=== PATIENT | female | born 1975 | race Caucasian/White ===

== ENCOUNTER 2022-07-18 12:27 | Emergency (ER) | payer MEDICAID, OTHER ==
[~2022-07-18] VITALS: Ht 157.5 cm; Wt 99.0 kg
[2022-07-18] MEDS ORDERED: MEPERIDINE HCL (50 MG/ML) 1 ML VIAL IM ONE (15:30)
[2022-07-18] MEDS ORDERED: PROMETHAZINE HCL 25 MG/ML 1ML IM ONE (15:30)
[2022-07-18 15:33] VITALS: BP 116/68
[2022-07-18] MEDS ORDERED: PRED20TA2 PO (15:43)
[2022-07-18] MEDS ORDERED: TRAM-297 PO (15:43)
== END 2022-07-18 15:58 | disposition home or self-care (01) ==
LOC: ER 12:40
DX: G89.29 Other chronic pain (principal); M54.50 Low back pain, unspecified; M25.562 Pain in left knee
CPT/HCPCS: 96372; 99284; J2175; J2550

== ENCOUNTER 2025-10-11 10:06 | Inpatient (IN) | payer MEDICAID ==
[~2025-10-11] VITALS: Ht 160 cm; Wt 91.5 kg
[~2025-10-11 10:06] MED LIST: ALBUAER3 IN; ASPI1TAB20 PO; ATOR10TA PO; BECL40AE11 IN; CHOL20004 PO; CYCL-837 PO; DICL75TA3 PO; EPIN0.1I11 IJ; FENO200C22 PO; HYDR25TA5 GT; IBU600T PO; LORA5SYP23 PO; METF-370 PO; METH-1181 PO; OMEP20TA PO; SEMA2INJ3 SC; ZOFR4T PO
[2025-10-11] MEDS: CEFEPIME 1GM/50ML 50 ML IV ONE (11:36)
[2025-10-11] MEDS ORDERED: fentaNYL CITRATE 100 MCG/2 ML VL ONE (12:43)
[2025-10-11] MEDS ORDERED: MIDAZOLAM HCL 2MG/2ML 2ml VIAL (1mg/ml) ONE (12:43)
[2025-10-11] MEDS ORDERED: METOCLOPRAMIDE HCL 5MG/ml INJ 2ml VIAL ONE (12:54)
[2025-10-11] MEDS ORDERED: ONDANSETRON HCL 4 MG/2 ML VIAL ONE (12:54)
[2025-10-11] MEDS ORDERED: HYDROmorphone HCL 2 MG/ML VL/or syr ONE (13:13)
[2025-10-11] MEDS ORDERED: SODIUM CHLORIDE LOCK 10 ML ONE (13:19)
[2025-10-11] MEDS ORDERED: hydrALAZINE HCL 20 MG/ML VL ONE (13:19)
[2025-10-11] MEDS ORDERED: ROCURONIUM 10MG/ML 10ML VIAL IV ONE (13:25)
[2025-10-11] MEDS ORDERED: METOPROLOL TARTRATE 1MG/1ML-5ML VIAL IV ONE (13:26)
[2025-10-11] MEDS ORDERED: SUGAMMADEX 200mg/2ml Vial (100MG/ML) IV ONE (13:49)
[2025-10-11] MEDS ORDERED: hydrALAZINE HCL 20 MG/ML VL IV PRN (14:00)
[2025-10-11] MEDS ORDERED: METOCLOPRAMIDE HCL 5MG/ml INJ 2ml VIAL IV PRN (14:00)
[2025-10-11] MEDS ORDERED: ONDANSETRON HCL 4 MG/2 ML VIAL IV PRN (14:00)
[2025-10-11] MEDS ORDERED: D5W/LACTATED RINGERS 1,000 ML IV SCH (14:30)
[2025-10-11] MEDS ORDERED: ONDANSETRON ODT 4 MG TAB PO PRN (14:45)
[2025-10-11] MEDS: SODIUM CHLORIDE 0.9% 1,000 ML IV SCH (14:45)
--- NOTE | 2025-10-11 14:45 | DVHOP2 ---
Operative Report - 2 Report Details Date: 10/11/25 Preop Diagnosis: Left knee degenerative arthritis Postop Diagnosis: Left knee degenerative arthritis Surgeon: Maricarmen Jain MD Contract Writer: Patrick BANERJEE Anesthesiologist: Yimi Anesthesia: General, Regional Drains: Umberto closed wound suction Implant: DonJoy size five femur porous uncemented CR, size five tibial plate cemented, size 10 conforming polyethylene Consent: The patient was informed of the risks and benefits of the procedure. These include but are not limited to complications of anesthesia, postoperative infection, incomplete relief of symptoms, recurrence of symptoms, damage to blood vessels, nerves and tendons, deep venous thrombosis, pulmonary embolism and possible need for repeat surgery in the future. Complications: None Estimated Blood Loss: 150 cc Fluids: See anesthesia record Findings: Varus deformity, osteophytes, denuded cartilage with eburnated bone Indications for Surgery: Left knee degenerative arthritis with severe pain and functional impairment despite nonoperative management Name of Procedure Performed Left total knee arthroplasty Procedure Details Procedure Details: The patient was brought to the operating room and placed on the table in the supine position after being given general anesthetic with adequate analgesia obtained. Surgical timeout was performed verifying patient, laterality and procedure Preop patient received IV cefepime IV Ancef and IV tranexamic acid. Tourniquet was applied to the lower extremity. Lower extremity was prepped and draped in sterile fashion. Extremity was elevated, exsanguinated Esmarch, and tourniquet inflated. Midline incision was made followed by medial arthrotomy. I exposed the anterior medial and lateral tibial plateau and the anterior distal femur. Bovie and aqua mantis were used for hemostasis. I excised the anterior meniscal tissue with Bovie. I excised a portion of the fat pad with Bovie. The patella was everted and the knee flexed. I drilled the distal femur and suctioned the hole to reduce the risk of fat emboli. I inserted intramedullary guide with 5 degree valgus setting. I pinned the distal femoral cutting block anteriorly. Intramedullary nilesh was removed. Distal femoral cut was made and the block removed. I brought my attention to the tibia setting up the external cutting jig for the tibia paying attention to slope, rotation and varus valgus alignment. I set the depth and pinned the block. I used the external alignment nilesh to aid in checking alignment. Bone cut was made and bone removed releasing soft tissue attachments with Bovie. Cutting block removed. I then checked the extension gap and deemed adequate and removed the femur and tibia pins. I flexed the knee and applied the femoral sizing guide to the femur. I checked the size and external rotation setting at 90 degrees to Whitesides line and checking the epicondylar axis. I drilled the holes then removed the sizing guide and pin. I then tapped on the 4 in 1 cutting block and checked with the sarita wing anteriorly to make sure that I would not notch then pinned the block. Cuts were made and the block and pins were removed. Bone was removed with curved osteotome. I used a rongeur to remove any remaining osteophytes at the femur and tibia. I then used a lamina reclamation worker to open up the back alternating between the medial and lateral side. Any remaining meniscal tissue was excised with scalpel. I used curved osteotome, curette and rongeur to remove any posterior osteophytes. I prophylactically coagulated with aqua mantis. I then tapped on the femoral trial. I then brought my attention back to the tibia sizing it. I used the external alignment nilesh to make sure that rotation and alignment were good. I made a Bovie yakov at the tibial tray yakov identifying rotation for later use. I tried various tibial polytrials. The patella tracked nicely without thumb pressure. I drilled the two femur holes. I removed the trials. I pinned the tray and used the reamer and keel punch. The implants were brought into the field while bone preparation was started. I used both normal saline irrigation and the CarboJet to prepare the bone. I used the bone from the cuts to graft the femoral tunnel. Once cement was ready I applied cement to the tibial implant and tibial bone tapped it on and removed excess cement in usual fashion. I tapped on the femoral im plant using porous implant without cement.. I inserted the trial polyethylene and brought the knee into 30 degrees flexion. I irrigated with biasurge irrigant. Once cement cured, I checked stability and range of motion as well as patella tracking. tourniquet was released and hemostasis maintained with aqua mantis. I inserted the polyethylene and again checked stability. I used a 2 grams of vancomycin half of which was placed deep and half superficial. I repaired the extensor mechanism with the knee in flexion with #1 Ethibond interrupted [id number]. Deep subcutaneous tissue was closed with 0 Vicryl. Superficial subcutaneous tissue was closed with 2-0 vicryl interrupted. Skin was closed with jose enrique. I then applied the [umberto closed wound suction]. Patient tolerated the procedure well and was brought to recovery room in stable condition. Condition Stable Disposition Still a Patient MARICARMEN JAIN MD Oct 11, 2025 14:45
[2025-10-11 14:46] VITALS: PULSE 96; RESP 16; O2SAT 96
[2025-10-11] MEDS: HYDROmorphone HCL 2 MG/ML VL/or syr IV PRN (15:03)
--- NOTE | 2025-10-11 15:45 | DVH ---
EXAM: XY L KNEE 3V XRAY INDICATION: postop TECHNIQUE: 3 views of the left knee COMPARISON: None FINDINGS/IMPRESSION: Left total knee arthroplasty. Expected postoperative changes.
[2025-10-11 16:20] VITALS: PULSE 98; RESP 15; O2SAT 97
[2025-10-11 16:55] VITALS: PULSE 92; RESP 20; O2SAT 98
[2025-10-11] MEDS: TRANEXAMIC ACID 20 ML ONE (16:57)
[2025-10-11] MEDS: ceFAZolin 2 GM/D5W50ml 50 ML IV ONE (16:58)
[2025-10-11] MEDS: VANCOMYCIN HCL 1000 MG VL ONE (16:58)
[2025-10-11 17:00] VITALS: BP 181/77; PULSE 92; RESP 20; TEMP 98.7; O2SAT 98
[2025-10-11] MEDS: ACETAMINOPHEN IV 1000 MG/100ML (10MG/ML) IV ONE (17:00)
[2025-10-11] MEDS: KETOROLAC TROMETH 30 MG/ML 1ML VIAL IV ONE (17:00)
[2025-10-11] MEDS ORDERED: ALBUTEROL SULF HFA 90MCG INH 200DOSE IN SCH (18:00)
[2025-10-11] MEDS: ACETAMINOPHEN 325 MG TAB PO SCH (18:08)
[2025-10-11] MEDS: ACETAMINOPHEN 325 MG TAB PO PRN (20:15)
[2025-10-11 21:00] VITALS: BP 194/88; PULSE 88; RESP 18; TEMP 98.2; O2SAT 95
[2025-10-11] MEDS: PREGABALIN 25 MG CAP PO SCH (22:29)
[2025-10-12] VITALS (7 sets, daily range): BP systolic 131–174; BP diastolic 60–90; PULSE 89–101; RESP 17–18; TEMP 97.8–98.3; O2SAT 94–99
[2025-10-12] MEDS: ceFAZolin 2 GM/D5W50ml 50 ML IV SCH (00:37)
[2025-10-12] MEDS: PANTOPRAZOLE 40 MG TAB PO SCH (05:19)
[2025-10-12 06:03] LABS: Hematocrit 36.6 % (36.0-46.0); Hemoglobin 12.6 g/dL (12.2-16.2); Mean Corpuscular Hemoglobin 28.2 pg (28.0-32.0); Mean Corpuscular Volume 82.0 fL (80.0-100.0); Nucleated Red Blood Cells % 0.0 %
[2025-10-12 06:40] LABS: Anion Gap 12 (5-15); Calcium 9.6 mg/dL (8.7-10.4); Carbon Dioxide 27 mmol/L (20-31); Chloride 99 mmol/L (98-107); Potassium 3.9 mmol/L (3.5-5.1); Sodium 138 mmol/L (136-145)
[2025-10-12 06:46] LABS: BUN/Creatinine Ratio 15.6 (10.0-20.0); Blood Urea Nitrogen 10 mg/dL (9-23)
[2025-10-12 06:48] LABS: Glucose 164 mg/dL (74-106)
[2025-10-12] MEDS: hydroCHLOROthiazide 25 MG TAB GT SCH (10:21)
[2025-10-12] MEDS ORDERED: PROPOFOL 10 MG/ML 20 ML IV ONE (13:45)
[2025-10-12] MEDS ORDERED: LIDOCAINE 1% (LOCAL ANESTH.) PF 5ml SDV ID ONE (13:46)
--- NOTE | 2025-10-12 14:46 | DVHDS2 ---
Discharge Summary Date of Admission Oct 11, 2025 at 14:26 Date of Discharge: Oct 12, 2025 Labs/Diagnostic Data: Laboratory Results Test 10/12/25 04:41 White Blood Count 9.6 10^3/uL (4.4-10.8) Red Blood Count 4.46 10^6/uL (4.0-5.20) Hemoglobin 12.6 g/dL (12.2-16.2) Hematocrit 36.6 % (36.0-46.0) Mean Corpuscular Volume 82.0 fL (80.0-100.0) Mean Corpuscular Hemoglobin 28.2 pg (28.0-32.0) Mean Corpuscular Hemoglobin Concent 34.4 g/dL (32.0-36.0) Red Cell Distribution Width 15.0 % (11.8-14.3) Platelet Count 281 10^3/uL (140-450) Mean Platelet Volume 8.3 fL (6.9-10.8) Neutrophils (%) (Auto) 87.2 % (37.0-80.0) Lymphocytes (%) (Auto) 5.7 % (10.0-50.0) Monocytes (%) (Auto) 7.1 % (0.0-12.0) Eosinophils (%) (Auto) 0.0 % (0.0-7.0) Basophils (%) (Auto) 0.0 % (0.0-2.0) Neutrophils # (Auto) 8.3 10 ^3/uL (1.6-8.6) Lymphocytes # (Auto) 0.5 10 ^3/uL (0.4-5.4) Monocytes # (Auto) 0.7 10 ^3/uL (0-1.3) Eosinophils # (Auto) 0 10 ^3/uL (0-0.8) Basophils # (Auto) 0 10 ^3/uL (0-0.2) Nucleated Red Blood Cells 0.0 % Sodium Level 138 mmol/L (136-145) Potassium Level 3.9 mmol/L (3.5-5.1) Chloride Level 99 mmol/L (98-107) Carbon Dioxide Level 27 mmol/L (20-31) Anion Gap 12 (5-15) Blood Urea Nitrogen 10 mg/dL (9-23) Creatinine 0.64 mg/dL (0.550-1.02) Glomerular Filtration Rate Calc 106 mL/min (>90) BUN/Creatinine Ratio 15.6 (10.0-20.0) Serum Glucose 164 mg/dL (74-106) Calcium Level 9.6 mg/dL (8.7-10.4) Other Laboratory Tests 10/12/25 04:41 Brief Hx & Hospital Course: Patient was brought to the hospital yesterday to undergo a left total knee arthroplasty. She tolerated the procedure well without complications and was kept overnight for postoperative observation. She has remained medically stable denying any overnight events and reports some postoperative knee pain that is being well managed with the help of pain medication. Patient reports that she was able to get up and walk with the help of physical therapy and her walker and was able to get down the laureano around the nurses station and back to her bed albeit with some postoperative knee pain but otherwise felt stable. Patient is otherwise feeling well denying any other complaints or concerns during today's evaluation and is ready to go home. Condition at Discharge: Stable Final Diagnosis/Problems List Left knee degenerative arthritis Discharge Disposition: Home Discharge Instruct/Medications Diet: Regular Activity: See Comment Activity comment: Patient to remain weight-bearing as tolerated with the assistance of her walker. Follow Up/Referral: I instructed the patient to follow up with our office in 10-14 days for her 1st postoperative evaluation Medications: Rx sent via our outpatient EMR system Scheduled Diclofenac Sodium (Diclofenac Sodium Dr), Unknown Dose PO BID, (Reported) Scheduled PRN Epinephrine (Anaphylaxis) (Auvi-Q), Unknown Dose IJ O PRN for anaphylaxis, (Reported) Ibuprofen Micronized (Motrin Tablet), Unknown Dose PO TID PRN for PAIN SCALE 1 THRU 6, (Reported) Miscellaneous Medications Albuterol Sulfate (Ventolin Mdi), 90 MCG IN, (Reported) Aspirin (Aspir-81), Unknown Dose PO, (Reported) Atorvastatin Calcium (Lipitor), Unknown Dose PO, (Reported) Beclomethasone Dipropionate (Qvar Redihaler), Unknown Dose IN, (Reported) Cholecalciferol (D3), Unknown Dose PO, (Reported) Cyclobenzaprine Hcl (Cyclobenzaprine Hcl), Unknown Dose PO, (Reported) Fenofibrate Micronized (Fenofibrate), Unknown Dose PO, (Reported) Hctz (Hydrochlorothiazide), Unknown Dose GT, (Reported) Loratadine (Claritin), Unknown Dose PO, (Reported) Metformin Hydrochloride (Metformin Hcl), Unknown Dose PO, (Reported) Methocarbamol (Methocarbamol), Unknown Dose PO, (Reported) Omeprazole (Gnp Omeprazole), Unknown Dose PO, (Reported) Ondansetron Odt 4MG Tab (Zofran Po), Unknown Dose PO, (Reported) Semaglutide (Ozempic), 2 MG SC, (Reported) Discharge Statement: "Patient was advised to return to the ER or call 911 if any headaches, dizziness, shortness of breath, chest pain, abdominal pain, bleeding, fevers, or worsening of medical condition. Patient was counseled about treatment plan, medications, possible side effects, patientverbalized understanding. All questions were answered to the best of my ability. This discharge took greater then 30 minutes in planning, reviewing documentation, counseling the patient, and discussing with other team members." ASSESSMENT ASSESSMENT Assessment Left knee degenerative arthritis ITA RESTREPO Oct 12, 2025 14:46
--- NOTE | 2025-10-12 14:47 | DVHPN2 ---
Progress Note - Dictate Date Seen: Oct 12, 2025 Medical Necessity Reason Pt with a Central, PICC or Fol: No Subjective Patient was lying comfortably in bed during my evaluation reports some postoperative knee pain that is being well managed with the help of pain medication. Patient notes that she was able to get up and walk with the help of physical therapy and her walker yesterday as well as today and was able to get down the laureano around the nurses station and back to her bed feeling stable albeit with some postoperative knee pain. Patient was otherwise feeling well denying any other complaints or concerns during my evaluation and is ready to go home. vital signs Vital Sign Date Time Temp Pulse Resp B/P (MAP) Pulse Ox O2 Delivery O2 Flow Rate FiO2 10/12/25 12:40 97.8 10/12/25 10:21 160/74 10/12/25 09:00 96 17 97 10/12/25 08:00 Room Air* 0 21 Total Intake and Output 10/11/25 10/11/25 10/12/25 15:00 23:00 07:00 Intake Total 100 ml 150 ml 1050 ml Output Total 500 ml Balance 100 ml 150 ml 550 ml medications Current Medications Medications Dose Ordered Sig/Rayo Route Start Time Stop Time Status Last Admin Dose Admin Acetaminophen 650 mg Q4HP PRN PO 10/11/25 14:30 10/12/25 04:15 650 MG Acetaminophen 650 mg Q6HR PO 10/11/25 18:00 10/12/25 12:40 650 MG Pregabalin 50 mg BID PO 10/11/25 22:00 10/12/25 10:22 50 MG Oxycodone HCl 5 mg Q4HP PRN PO 10/11/25 14:30 10/12/25 05:20 5 MG Oxycodone HCl 10 mg Q4HP PRN PO 10/11/25 14:30 10/12/25 03:11 10 MG Aspirin 81 mg BID PO 10/12/25 10:00 10/12/25 10:22 81 MG Albuterol 90 mcg Q6HPRN IN 10/11/25 18:00 Cancel Hydrochlorothiazide 25 mg DAILY GT 10/12/25 10:00 10/12/25 10:21 25 MG Metformin HCl 500 mg BID PO 10/11/25 22:00 10/11/25 22:32 500 MG Ondansetron HCl 4 mg Q6HPRN PRN PO 10/11/25 14:45 Sodium Chloride 1,000 ml @ 125 mls/hr Q8H IV 10/11/25 14:45 10/11/25 14:45 125 MLS/HR Pantoprazole Sodium 40 mg DAILY@0600 PO 10/12/25 06:00 10/12/25 05:19 40 MG objective A&O x4 in no acute distress Knee range of motion grossly limited with pain on movement Trixie dressing clean, dry, intact, and maintaining suction No distal edema or calf tenderness to palpation Neurovascularly intact with cap refill less than 2 seconds laboratory and microbiology Laboratory Tests 10/12/25 04:41 Test 10/12/25 04:41 Range/Units Serum Glucose 164 H 74-106 mg/dL Assessment/Plan Patient to be discharged home and advised to remain weight-bearing as tolerated with the assistance of her walker. I advised the patient to follow up with our office in 10-14 days for her 1st postoperative evaluation and to call our office if she has any further questions or concerns. I also advised the patient to maintain her dressings clean, dry, intact, and maintaining suction. Rx sent via our outpatient EMR system. Patient understood and agreed. Plan discussed with: Patient ITA RESTREPO Oct 12, 2025 14:47
== END 2025-10-12 18:40 | disposition home or self-care (01) | DRG 326 ==
LOC: SUR 10:06 → OVERFLOW 14:26 → CENTRAL 17:38
PROVIDERS: ADMIT Orthopaedic Surgery; ATTEND Orthopaedic Surgery
PROC: 0SRD0J9 Replacement of Left Knee Joint with Synthetic Substitute, Cemented, Open Approach (ICD-10-PCS; principal; 2025-10-11 12:39)
DX: M17.12 Unilateral primary osteoarthritis, left knee (principal); G89.18 Other acute postprocedural pain
CPT/HCPCS: 36415; 73562; 80048; 85025; 86850; 86900; 86901; 87081; 97110; 97116; 97163; 97530; G0378; J1100; J2250; J2405; J2704

== ENCOUNTER 2025-10-16 15:32 | Emergency (ER) | payer MEDICAID ==
[~2025-10-16] VITALS: Ht 157.5 cm; Wt 89.0 kg
[2025-10-16 15:40] VITALS: BP 176/65; PULSE 95; RESP 16; TEMP 99.4; O2SAT 98
--- NOTE | 2025-10-16 16:37 | ED.PDOC ---
History of Present Illness Chief Complaint: Wound Check Comments This is a patient who had left knee surgery on Thursday who presents to the emergency room because there is some bloody staining on her dressing. There is no redness no pus no pain no fever. Time Seen by MD: 16:04 Primary Care Provider: NONE Reviewed Notes: Nurses Notes, Medications, Allergies Allergies: Coded Allergies: NO KNOWN ALLERGIES (Unverified , 08/10/11) Home Meds Reported Medications Methocarbamol (Methocarbamol) 500 Mg Tab, PO, TAB 10/04/25 Beclomethasone Dipropionate (Qvar Redihaler) 40 Mcg/Act Aer, IN, AER 10/04/25 Albuterol Sulfate (VENTOLIN MDI) 90 Mcg Ih, 90 MCG IN, INH 10/04/25 Semaglutide (Ozempic) 2 Mg/3 Ml Inj, 2 MG SC, INJ 10/04/25 Epinephrine (Anaphylaxis) (Auvi-Q) 0.1 Mg/0.1 Ml Inj, IJ O PRN for anaphylaxis for 1 Day, #1 INJ 10/04/25 Diclofenac Sodium (Diclofenac Sodium Dr) 75 Mg Tab, PO BID, #60 TAB 1 Refill 10/04/25 Ondansetron Odt 4MG Tab (ZOFRAN PO) 4 Mg Tb, PO, TAB ODT TAB-DISSOLVE IN MOUTH, THEN SWALLOW 10/04/25 Cyclobenzaprine Hcl (Cyclobenzaprine Hcl) 5 Mg Tab, PO, TAB 10/04/25 Atorvastatin Calcium (Lipitor) 10 Mg Tab, PO, TAB 10/04/25 Fenofibrate Micronized (Fenofibrate) 200 Mg Cap, PO, CAP 10/04/25 Hctz (Hydrochlorothiazide) 25 Mg Tab, GT, TAB 10/04/25 Cholecalciferol (D3) 50 Mcg Cap, PO, CAP 10/04/25 Metformin Hydrochloride (Metformin Hcl) 500 Mg Tab, PO, TAB 10/04/25 Loratadine (Claritin) 5 Mg/5 Ml Syp, PO, SYP 10/04/25 Aspirin (Aspir-81) 81 Mg Tab, PO, TAB 10/04/25 Omeprazole (Gnp Omeprazole) 20 Mg Tab, PO, TAB 10/04/25 Ibuprofen Micronized (MOTRIN TABLET) 600 Mg Tb, PO TID PRN for PAIN SCALE 1 THRU 6, #40 TAB *Black box warning-NSAIDS can increase risk of LA & hypertension, GI irritation, ulceration, bleed, perferation. Do not use post cardiac surgery. Use short duration/lowest effective dose. 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: No Pertinent BUMPER [employer] PAINTER History Family History Family History: Reviewed,noncontributory to illness Social History Smoker: Non-Smoker Alcohol: Denies ETOH Use Drugs: Denies Drug Use Lives In: Home Constitutional: denies: chills, diaphoresis, fatigue, fever, malaise, sweats, weakness, others EENTM: denies: blurred vision, double vision, ear bleeding, ear discharge, ear drainage, ear pain, ear ringing, eye pain, eye redness, hearing loss, mouth pain, mouth swelling, nasal discharge, nose bleeding, nose congestion, nose pain, photophobia, tearing, throat pain, throat swelling, voice changes, others Respiratory: denies: cough, hemoptysis, orthopnea, SOB at rest, shortness of breath, SOB with excertion, stridor, wheezing, others Cardiovascular: denies: chest pain, dizzy spells, diaphoresis, Dyspnea on exertion, edema, irregular heart beat, left arm pain, lightheadedness, palpitations, PND, syncope, others Gastrointestinal: denies: abdomen distended, abdominal pain, blood streaked bowels, constipated, diarrhea, dysphagia, difficulty swallowing, hematemesis, melena, nausea, poor appetite, poor fluid intake, rectal bleeding, rectal pain, vomiting, others Genitourinary: denies: abnormal vagina bleeding, burning, dyspareunia, dysuria, flank pain, frequency, hematuria, incontinence, pain, , vagina discharge, urgency, others Neurological: denies: dizziness, fainting, headache, left sided numbness, left sided weakness, numbness, paresthesia, pre-existing deficit, right sided numbness, right sided weakness, seizure, speech problems, tingling, tremors, weakness, others Musculoskeletal: reports: others (Bloody staining on dressing); denies: back pain, gout, joint pain, joint swelling, muscle pain, muscle stiffness, neck pain Integumetry: denies: bruises, change in color, change in hair/nails, dryness, laceration, lesions, lumps, rash, wounds, others Allergic/Immunocompromised: denies: Difficulty Healing, Frequent Infections, Hives, Itching, others Hematologic/Lymphatic: denies: anemia, blood clots, easy bleeding, easy bruising, swollen glands, others Endocrine: denies: excessive hunger, excessive sweating, excessive thirst, excessive urination, flushing, intolerance to cold, intolerance to heat, unexplained weight gain, unexplained weight loss, others Psychiatric: denies: anxiety, bipolar disorder, depression, hopeless, panic disorder, schizophrenia, sleepless, suicidal, others All Other Systems: Reviewed and Negative Physical Exam General Appearance: No Apparent Distress, Normal HEENT: Normal ENT Inspection, Pharynx Normal, TMs Normal Neck: Full Range of Motion, Non-Tender, Normal, Normal Inspection Respiratory: Chest Non-Tender, Lungs Clear, No Accessory Muscle Use, No Respiratory Distress, Normal Breath Sounds Cardiovascular: No Edema, No JVD, No Murmur, No Gallop, Normal Peripheral Pulses, Regular Rate/Rhythm Breast Exam: Deferred Gastrointestinal: No Organomegaly, Non Tender, No Pulsatile Mass, Normal Bowel Sounds, Soft Genitalia: Deferred Pelvic: Deferred Rectal: Deferred Extremities: No calf tenderness, Normal capillary refill, Normal inspection, Normal range of motion, Non-tender, No pedal edema, Other (Left knee dressing is fairly clean accept some mild blood staining. The wound itself is intact. There is no redness, no pus, no tenderness.) Musculoskeletal : Apperance: Normal Neurologic: Alert, tool technician II-XII nml as Tested, No Motor Deficits, Normal Affect, Normal Mood, No Sensory Deficits Cerebellar Function: Normal Reflexes: Normal Skin: Dry, Normal Color, Warm Lymphatic: No Adenopathy Was a procedure done? Was a procedure done?: No Differential Dx Considerations may include: Postop infection. Cellulitis. Wound dehiscence. Serous fluid drainage. Abscess. X-Ray, Labs, Meds, VS Vital Signs Date Time Temp Pulse Resp B/P (MAP) Pulse Ox O2 Delivery O2 Flow Rate FiO2 10/16/25 15:40 99.4 95 16 176/65 98 99.4 Lab Test 10/16/25 16:22 Range/Units White Blood Count Pending Red Blood Count Pending Hemoglobin Pending Hematocrit Pending Mean Corpuscular Volume Pending Mean Corpuscular Hemoglobin Pending Mean Corpuscular Hemoglobin Concent Pending Red Cell Distribution Width Pending Platelet Count Pending Mean Platelet Volume Pending Neutrophils (%) (Auto) Pending Lymphocytes (%) (Auto) Pending Monocytes (%) (Auto) Pending Basophils (%) (Auto) Pending Neutrophils # (Auto) Pending Lymphocytes # (Auto) Pending Monocytes # (Auto) Pending Sodium Level Pending Potassium Level Pending Chloride Level Pending Carbon Dioxide Level Pending Anion Gap Pending Blood Urea Nitrogen Pending Creatinine Pending Glomerular Filtration Rate Calc Pending BUN/Creatinine Ratio Pending Serum Glucose Pending Lactic Acid Level Pending Calcium Level Pending Total Bilirubin Pending Aspartate Amino Transferase (AST) Pending Alanine Aminotransferase (ALT) Pending Alkaline Phosphatase Pending Total Protein Pending Albumin Pending Time of 1ST Reevaluation: 16:36 Reevaluation 1ST: Unchanged Patient Education/Counseling: Diagnosis, Treatment, Prognosis, Need For Follow Up Family Education/Counseling: No Family Present Comments Patient is postop from knee surgery on Thursday here for re-evaluation of the surgical wound. She is worried that there is some blood staining on the dressing. Examination shows no wound dehiscence. No active bleeding. No signs of infection. However there is evidence of recent serous fluid staining of the dressing. Patient is stable for discharge. Dressing has been changed. She will follow up with her orthopedist as scheduled. SEPSIS Sepsis Screen Date sepsis recognized/suspect: Oct 16, 2025 Time Sepsis recognized/suspect: 1543 Recent Procedure: Yes On Antibiotic Therapy: No Respiratory Rate >20: No Heart Rate >90: Yes Temp<36 C (96.8 F) or >38.3 C: No SBP <90 or MAP <65 mmHG: No New Acute Mental Status Change: No Is the patient on CPAP, BIPAP,: No Physician Orders Complete Blood Count (10/16/25 16:00) Comprehensive Metabolic Panel (10/16/25 16:00) Lactic Acid W/ Reflex Order (10/16/25 16:00) Blood Culture (10/16/25 16:00) Vital Signs Date Time Temp Pulse Resp B/P (MAP) Pulse Ox O2 Delivery O2 Flow Rate FiO2 10/16/25 15:40 99.4 95 16 176/65 98 99.4 Laboratory Tests Test 10/16/25 16:22 Lactic Acid Level Pending White Blood Count Pending Departure 1 Departure Time of Disposition: 16:36 Impression: Primary Impression: Visit for wound check Disposition: HOME / SELF CARE / HOMELESS Condition: Good Discharged With: Self Critical Care Note Critical Care Time?: No Stability Stability form required: AISHA Lucio MD Oct 16, 2025 16:37
[2025-10-16 16:47] LABS: Hematocrit 34.4 % (36.0-46.0); Hemoglobin 11.9 g/dL (12.2-16.2); Mean Corpuscular Hemoglobin 28.3 pg (28.0-32.0); Mean Corpuscular Volume 82.0 fL (80.0-100.0); Nucleated Red Blood Cells % 0.1 %
[2025-10-16 16:55] LABS: Alkaline Phosphatase 65 U/L (46-116); Anion Gap 13 (5-15); BUN/Creatinine Ratio 16.9 (10.0-20.0); Blood Urea Nitrogen 10 mg/dL (9-23); Calcium 10.0 mg/dL (8.7-10.4); Carbon Dioxide 28 mmol/L (20-31); Chloride 100 mmol/L (98-107); Glucose 100 mg/dL (74-106); Potassium 3.7 mmol/L (3.5-5.1); Sodium 141 mmol/L (136-145); Total Protein 7.5 g/dL (5.7-8.2)
[2025-10-16 16:56] LABS: Alanine Aminotransferase 42 U/L (7-40); Albumin 4.8 g/dL (3.2-4.8); Bilirubin, Total 1.4 mg/dL (0.2-1.0)
== END 2025-10-16 19:01 | disposition home or self-care (01) ==
LOC: ER 15:32
DX: Z48.00 Encounter for change or removal of nonsurgical wound dressing (principal); Z90.49 Acquired absence of other specified parts of digestive tract; M19.90 Unspecified osteoarthritis, unspecified site
CPT/HCPCS: 36415; 80053; 83605; 85025; 87040